=== PATIENT | female | born 1980 | race Hispanic/Latino ===

== ENCOUNTER 2017-08-18 03:01 | Inpatient (IN) | payer OTHER ==
[~2017-08-18] VITALS: Ht 165.1 cm; Wt 104.3 kg
--- OUTSIDE RECORDS SUMMARY | 2017-08-18 03:03 | XMS REPORT | Clinical Summary ---
Author Author [facility] Address Unknown Phone Unavailable Care Team Providers Care Certified Hyperbaric Technologist Name Role Phone Asked, Pcp PCP Unavailable Allergies Active Allergy Reactions Severity Noted Date Comments Penicillin Hives 06/17/2017 Current Medications Prescription Sig. Disp. Refills Start End Date Status Date norgestimate-ethinyl Take 1 tablet by mouth 28 tablet 11 08/05/19 Active estradiol (SPRINTEC, 28,) daily. 18 0.25-35 mg-mcg per tablet norgestimate-ethinyl Take 1 tablet by mouth 08/05/19 Discontin estradiol (SPRINTEC, 28,) daily. 18 ued 0.25-35 mg-mcg per tablet Active Problems Not on file Encounters Date Type Specialty Care Team Description 08/04/2017 Refill Obstetrics and Gynecology Dawn Francois MA 06/17/2017 Office Visit Obstetrics and Gynecology Lolita León MD Cervical smear, as part of routine gynecological examination (Primary Dx) after 08/17/2016 Family History Medical History Relation Name Comments Diabetes Maternal Grandfather Hypertension Maternal Grandfather Cancer Maternal Grandmother Hypertension Mother Relation Name Status Comments Maternal Grandfather Maternal Grandmother Mother Social History Tobacco Use Types Packs/Day Years Used Date Never Smoker Smokeless Tobacco: Never Used Alcohol Use Drinks/Week oz/Week Comments Yes social Sex Assigned at Date Recorded Not on file Last Filed Vital Signs Vital Sign Reading Time Taken Blood Pressure 176/110 06/17/2017 9:36 AM OCEAN FORWARDER Pulse 74 06/17/2017 9:36 AM OCEAN FORWARDER Temperature 36.8 C (98.3 F) 06/17/2017 9:36 AM OCEAN FORWARDER Respiratory Rate - - Oxygen Saturation - - Inhaled Oxygen - - Concentration Weight 104 kg (228 lb 9.6 oz) 06/17/2017 9:36 AM OCEAN FORWARDER Height - - Body Mass Index - - Plan of Treatment Health Maintenance Due Date Last Done Comments PAP SMEAR 2002 INFLUENZA VACCINE 12/01/2017 Results * Pap IG, Ct-Ng TV rfx HPV all (06/17/2017 10:15 AM) Component Value Ref Range Diagnosis CommentComment: NEGATIVE FOR INTRAEPITHELIAL LESION AND MALIGNANCY. Specimen adequacy Comment Comment: Satisfactory for evaluation. No endocervical component is identified. The absence of an endocervical component was confirmed by an additional screening evaluation. Clinician provided ICD10 CommentComment: Z01.419 Performed by: Comment Comment: Yumiko Valdez, Barrel Bander (ASCP) Reviewed at: [address] [address] [place] reviewed by: Comment Comment: Narda Mednoza, Supervisory Barrel Bander (ASCP) Reviewed at: [address] [address] Comment . Note: Comment Comment: The Pap smear is a screening test designed to aid in the detection of premalignant and malignant conditions of the uterine cervix. It is not a diagnostic procedure and should not be used as the sole means of detecting cervical cancer. Both false-positive and false-negative reports do occur. Test methodology Comment Comment: This liquid based ThinPrep(R) pap test was screened with the use of an image guided system. Reflex Comment Comment: The HPV DNA reflex criteria were not met with this specimen result therefore, no HPV testing was performed. Chlamydia, nucleic acid Negative Negative amp Gonococcus by nucleic Negative Negative acid amp Trichomonas vag by JOLENE Negative Negative Specimen Performing Laboratory [facility]erv[facility] Narrative Performed at: - [facility] [address] [place], [id number] Inspector And Clerk: Fely Osborne MD, Phone:[phone] Performed at:02 - [facility] [address] [place], [id number] Inspector And Clerk: Fely Osborne MD, Phone:[phone] Specimen Comment: Source.............Cervix Specimen Comment: No. of containers..01 ThinPrep Vial after 08/17/2016 Insurance Payer Benefit Subscriber ID Type Phone Address Plan / Group [facility] xxxxxxxxx HMO/PPO THCARE CHOICE/CHO ICE + Home: [address] [place] [id number]
[2017-08-18] MEDS ORDERED: SPRINTEC1 EACH PO (03:20)
[2017-08-18] MEDS ORDERED: XYZAL5 MG PO (03:20)
[2017-08-18] MEDS ORDERED: LISINOPRIL-HCT1 EACH PO (03:20)
[2017-08-18 03:36] LABS: BASOPHILS # (AUTO) 0.1 (0.0-0.1); BASOPHILS % 0.4 % (0.0-1.0); EOSINOPHILS % 0.2 % (0.0-6.0); HEMATOCRIT 41.8 % (34.2-44.1); HEMOGLOBIN 14.7 g/dL (12.0-16.0); LYMPHOCYTES # (AUTO) 2.5 (1.0-3.2); LYMPHOCYTES % 14.8 % (18.0-39.1); MEAN CORPUSCULAR HEMOGLOBIN 29.2 pg (28-32); MEAN CORPUSCULAR HGB CONC 35.2 g/dL (31-35); MEAN CORPUSCULAR VOLUME 83.1 fL (81-99); MONOCYTES # (AUTO) 0.3 (0.2-0.8); MONOCYTES % 1.9 % (4.4-11.3); NEUTROPHILS # (AUTO) 13.5 (2.1-6.9); NEUTROPHILS % 81.1 % (38.7-80.0); PLATELET COUNT 344 x10e3/uL (140-360); RED BLOOD COUNT 5.03 x10e6/uL (3.6-5.1)
[2017-08-18 03:42] LABS: CLARITY,URINE CLEAR (CLEAR); COLOR,URINE YELLOW (YELLOW); KETONES,URINE 2+ (NEGATIVE); LEUKOCYTE ESTERASE ,URINE NEGATIVE (NEGATIVE); NITRITE,URINE NEGATIVE (NEGATIVE); PROTEIN,URINE DIPSTICK 2+ (NEGATIVE); URINE UROBILINOGEN 0.2 mg/dL (0.2 - 1)
[2017-08-18 03:43] LABS: BILIRUBIN,URINE 2+ (NEGATIVE)
[2017-08-18 03:50] LABS: PREGNANCY TEST, URINE NEGATIVE (NEGATIVE)
[2017-08-18 03:51] LABS: BACTERIA,URINE MANY /HPF; EPITHELIAL CELLS,URINE MODERATE /LPF
[2017-08-18 03:52] LABS: ALANINE AMINOTRANSFERASE 25 IU/L (0-55); ALBUMIN 3.6 g/dL (3.5-5.0); ALBUMIN/GLOBULIN RATIO 0.8 (0.8-2.0); ALKALINE PHOSPHATASE 64 IU/L (40-150); AMYLASE 75 U/L (25-125); ANION GAP 15.1 mmol/L (8-16); BLOOD UREA NITROGEN 10 mg/dL (7-26); BUN/CREATININE RATIO 13 (6-25); CALCIUM 9.8 mg/dL (8.4-10.2); CARBON DIOXIDE 24 mmol/L (22-29); CHLORIDE 99 mmol/L (98-107); CREATININE, SERUM 0.77 mg/dL (0.57-1.11); EST GLOMERULAR FILTRATION RATE > 60 ML/MIN (60-); GLUCOSE 150 mg/dL (74-118); LIPASE 21 U/L (8-78); POTASSIUM 4.1 mmol/L (3.5-5.1); SODIUM 134 mmol/L (136-145)
[2017-08-18] MEDS ORDERED: ONDANSETRON HCL INJ 2 MG/ML VIAL IV STA ×2 (03:55→03:56)
[2017-08-18] MEDS ORDERED: DIATRIZOATE MEGL/DIATRIZOA SOD 30 ML BTL PO ONE (04:01)
[2017-08-18] MEDS ORDERED: IOPAMIDOL 370 MG/ML 200 ML INFUS..BTL INJ ONE (05:49)
[2017-08-18] MEDS ORDERED: SODIUM CHLORIDE 0.9% 50ML 50 ML ONE (05:49)
--- NOTE | 2017-08-18 06:10 | Diagnostic Imaging Report ---
EXAM: CT ABDOMEN/PELVIS W DATE: 08/18/2017 3:54 AM INDICATION: Abdominal pain, afebrile, WBC 16 reportedly. Patient is on lisinopril. COMPARISON: None TECHNIQUE: The abdomen and pelvis were scanned using a multidetector helical scanner. Coronal and sagittal reformations were obtained. Routine protocol performed. IV Contrast: 100 ml Isovue 370 FINDINGS: LOWER THORAX: No consolidations LIVER/BILIARY: Hepatic steatosis. No masses. No ductal dilatation. GALLBLADDER: Unremarkable SPLEEN: Unremarkable PANCREAS: Unremarkable ADRENALS: No nodules KIDNEYS: subcentimeter left inferior renal cyst. Nonobstructing 4 mm superior renal calculus. No hydronephrosis. GI TRACT: Segmental edematous thickening of jejunal small bowel loops. VESSELS: Unremarkable PERITONEUM/RETROPERITONEUM: Mild free fluid mostly in the pelvis. LYMPH NODES: No lymphadenopathy REPRODUCTIVE ORGANS/BLADDER: Unremarkable SOFT TISSUES: Unremarkable BONES: No suspicious bone lesions. IMPRESSION: Segmental jejunal thickening, which may be related to FIORELLA inhibitor induced angioedema or alternatively infectious enteritis in the proper clinical context. Signed by: Dr Madyson Grande MD on 08/18/2017 6:06 AM
[2017-08-18] MEDS ORDERED: LEVOFLOXACIN 500MG/D5W 100ML IV SCH (06:45)
--- OUTSIDE RECORDS SUMMARY | 2017-08-18 06:53 | XMS REPORT | Clinical Summary ---
Author Author [facility] Address Unknown Phone Unavailable Care Team Providers Care Band Sawing Machine Operator Name Role Phone Asked, Pcp PCP Unavailable [...] Taken Blood Pressure 176/110 06/17/2017 9:36 AM CORD CUTTER Pulse 74 06/17/2017 9:36 AM CORD CUTTER Temperature 36.8 C (98.3 F) 06/17/2017 9:36 AM CORD CUTTER Respiratory Rate - - Oxygen Saturation - - Inhaled Oxygen - - Concentration Weight 104 kg (228 lb 9.6 oz) 06/17/2017 9:36 AM CORD CUTTER Height - - Body Mass Index - [...] Z01.419 Performed by: Comment Comment: Yumiko Valdez, Grinder Mill Operator (ASCP) Reviewed at: [address] [address] [place] reviewed by: Comment Comment: Narda Mendoza, Supervisory Grinder Mill Operator (ASCP) Reviewed at: [address] [address] Comment . Note: Comment Comment: The Pap [...] Laboratory [facility] Narrative Performed at: - [facility] [address] [place], [id number] Office Inspector: Fely Osborne MD, Phone:[phone] Performed at:02 - [facility] [address] [place], [id number] Office Inspector: Fely Osborne MD, Phone:[phone] Specimen Comment: Source.............Cervix Specimen Comment: No. of containers..01 ThinPrep Vial after 08/17/2016 Insurance Payer Benefit Subscriber ID Type Phone Address Plan / Group [facility] xxxxxxxxx HMO/PPO THCARE CHOICE/CHO ICE + Home: [address] [place] [id number]
--- OUTSIDE RECORDS SUMMARY | 2017-08-18 06:53 | XMS REPORT ---
Author Author [facility] Address Unknown Phone Unavailable Care Team Providers Care Sales Account Associate Name Role Phone BARI DOBBS Unavailable Unavailable Problems This patient has no known problems. Allergies, Adverse Reactions, Alerts This patient has no known allergies or adverse reactions. Medications This patient has no known medications. Results Test Description Test Time Test Comments Text Results Atomic Results Result Comments CT ABDOMEN/PELVIS W [place] [id number] Patient Name: DONTA BURGESS MR #: [id number] : 1980 Age/Sex: 36/F Req #: [id number] Adm Physician: Ordered by: BARI DOBBS MD Report #: [id number] Location: ER Room/Bed: ___ Procedure: [id number] CT/CT ABDOMEN/PELVIS W Exam Date: 08/18/17 Exam Time: 0504 REPORT STATUS: Signed EXAM: CT ABDOMEN/PELVIS W DATE: 08/18/2017 3:54 AM INDICATION: Abdominal pain, afebrile, WBC 16 reportedly. Patient is on lisinopril. COMPARISON: None TECHNIQUE: The abdomen and pelvis were scanned using a multidetector helical scanner. Coronal and sagittal reformations were obtained. Routine protocol performed. IV Contrast: 100 ml Isovue 370 FINDINGS: LOWER THORAX: No consolidations LIVER/BILIARY: Hepatic steatosis. No masses. No ductal dilatation. GALLBLADDER: Unremarkable SPLEEN: Unremarkable PANCREAS: Unremarkable ADRENALS: No nodules KIDNEYS: subcentimeter left inferior renal cyst. Nonobstructing 4 mm superior renal calculus. No hydronephrosis. GI TRACT: Segmental edematous thickening of jejunal small bowel loops. VESSELS: Unremarkable PERITONEUM/RETROPERITONEUM: Mild free fluid mostly in the pelvis. LYMPH NODES: No lymphadenopathy REPRODUCTIVE ORGANS/ BLADDER: Unremarkable SOFT TISSUES: Unremarkable BONES: No suspicious bone lesions. IMPRESSION: Segmental jejunal thickening, which may be related to FIORELLA inhibitor induced angioedema or alternatively infectious enteritis in the proper clinical context. Signed by: Dr Faith Grande MD on 08/18/2017 6:06 AM Dictated By: FAITH GRANDE MD 5 Transcribed By: KENNY on 08/18 COPY TO: BARI DOBBS MD
[2017-08-18] MEDS: METRONIDAZOLE 500MG/NS 100ML 100 ML IV SCH ×4 (07:07→23:18)
[2017-08-18] MEDS: METHYLPREDNISOLONE SOD SUCC 40 MG/ML VIAL IV SCH ×4 (07:07→23:18)
[2017-08-18] MEDS: FAMOTIDINE 20 MG/2 ML VIAL IV SCH ×3 (07:07→17:00)
[2017-08-18] MEDS: SODIUM CHLORIDE 0.9% 1000ML 1,000 ML IV SCH ×3 (07:07→21:59)
[2017-08-18 07:55] LABS: CHOL/HDL RATIO 2.4 (3.0-3.6)
[2017-08-18] MEDS: LEVOFLOXACIN 500MG/D5W 100ML 100 ML IV SCH (08:20)
[2017-08-18] MEDS: ONDANSETRON HCL INJ 2 MG/ML VIAL IV PRN ×2 (08:33→18:38)
[2017-08-18] MEDS: MORPHINE SULFATE 2 MG/ML SYR IV PRN ×2 (08:33→18:00)
--- NOTE | 2017-08-18 08:36 | History and Physical ---
PRIMARY CARE PHYSICIAN: Dr. Daly CHIEF COMPLAINT: Abdominal pain, nausea and vomiting. HISTORY OF PRESENT ILLNESS: This is a 36-year-old woman with a history of IBS, now developing abdominal pain diffusely with associated nausea, vomiting, and diarrhea for the past 3 days, has been worsening, therefore she came to the hospital. Denies any fever. Denies any other symptoms. Imaging in the ER suggested enteric pathology. She is admitted for further evaluation and management. PAST MEDICAL HISTORY: Hypertension, IBS, psoriasis. PAST SURGICAL HISTORY: x2. ALLERGIES: PER ELECTRONIC MEDICAL RECORD. FAMILY/SOCIAL HISTORY: Patient is single. She has 2 children. No alcohol, illicits, or cigarettes. MEDICATIONS: Per electronic medical record. REVIEW OF SYSTEMS: Denies any dizziness, chest pain. PHYSICAL EXAMINATION: VITAL SIGNS: Have been reviewed. GENERAL APPEARANCE: Tired-appearing woman resting in bed. HEENT: Anicteric. Pupils respond to light. No oral lesions. CARDIOVASCULAR: Normal S1 and S2. LUNGS: Good breath sounds. ABDOMEN: Soft, nondistended. She has tenderness in the mid abdomen in a band-like pattern, significant tenderness. EXTREMITIES: Trace edema. SKIN: Dry. PSYCHIATRIC: Flat affect. NEUROLOGICAL: Alert and oriented x3. Moving all extremities. LABS: Reviewed. MEDICATIONS: Reviewed. ASSESSMENT AND PLAN: Qgjhcf-wdol-stvt-old woman. 1. Acute enteritis with jejunal thickening/jejunitis. Will use intravenous steroids and antibiotics and keep patient n.p.o. today. 2. Angioedema of the gut. Intravenous steroids, hold angiotensin-converting enzyme inhibitor, and n.p.o. status. 3. Hyperglycemia obesity. Will screen for diabetes. 4. Obesity. Screen for diabetes. 5. Urinary tract infection. Will treat with antibiotics and follow up cultures. 6. Prophylaxis. Will use intravenous Pepcid and sequential compression devices. 7. Disposition. Monitor closely. Follow up laboratories. Job#: [id number]
[2017-08-18] MEDS ORDERED: LORATADINE 10 MG TAB PO SCH (09:00)
[2017-08-18] MEDS ORDERED: NORGESTIMATE ETHINYL ESTRADIOL PO SCH (09:00)
[2017-08-18] MEDS: SPRINTEC PO SCH (09:00)
[2017-08-18] MEDS: LORATADINE 10 MG TAB PO SCH (09:00)
[2017-08-18 10:00] VITALS: BP 150/81
[2017-08-18 12:53] VITALS: BP 123/74
[2017-08-18 15:44] VITALS: BP 97/50
[2017-08-18 20:00] VITALS: BP 97/50
[2017-08-19] VITALS (7 sets, daily range): BP systolic 104–195; BP diastolic 53–110
[2017-08-19] MEDS: METHYLPREDNISOLONE SOD SUCC 40 MG/ML VIAL IV SCH ×3 (05:45→18:00)
[2017-08-19] MEDS: METRONIDAZOLE 500MG/NS 100ML 100 ML IV SCH ×3 (05:45→19:07)
[2017-08-19] MEDS: SODIUM CHLORIDE 0.9% 1000ML 1,000 ML IV SCH ×2 (05:45→14:38)
[2017-08-19 07:10] LABS: BASOPHILS % 0.1 % (0.0-1.0); HEMATOCRIT 33.3 % (34.2-44.1); HEMOGLOBIN 11.6 g/dL (12.0-16.0); LYMPHOCYTES # (AUTO) 1.4 (1.0-3.2); LYMPHOCYTES % 11.5 % (18.0-39.1); MEAN CORPUSCULAR HEMOGLOBIN 29.2 pg (28-32); MEAN CORPUSCULAR HGB CONC 34.8 g/dL (31-35); MEAN CORPUSCULAR VOLUME 83.9 fL (81-99); MONOCYTES # (AUTO) 0.3 (0.2-0.8); MONOCYTES % 2.7 % (4.4-11.3); NEUTROPHILS # (AUTO) 10.4 (2.1-6.9); PLATELET COUNT 259 x10e3/uL (140-360); RED BLOOD COUNT 3.97 x10e6/uL (3.6-5.1); RED CELL DISTRIBUTION WIDTH 12.8 % (11.7-14.4)
[2017-08-19 07:34] LABS: ALANINE AMINOTRANSFERASE 19 IU/L (0-55); ALBUMIN 3.1 g/dL (3.5-5.0); ALBUMIN/GLOBULIN RATIO 0.8 (0.8-2.0); ALKALINE PHOSPHATASE 49 IU/L (40-150); AMYLASE 57 U/L (25-125); BLOOD UREA NITROGEN 7 mg/dL (7-26); BUN/CREATININE RATIO 11 (6-25); CALCIUM 8.5 mg/dL (8.4-10.2); CARBON DIOXIDE 23 mmol/L (22-29); CHLORIDE 104 mmol/L (98-107); CREATININE, SERUM 0.64 mg/dL (0.57-1.11); EST GLOMERULAR FILTRATION RATE > 60 ML/MIN (60-); GLUCOSE 141 mg/dL (74-118); LIPASE 12 U/L (8-78); SODIUM 136 mmol/L (136-145)
[2017-08-19] MEDS: LEVOFLOXACIN 500MG/D5W 100ML 100 ML IV SCH (08:00)
[2017-08-19] MEDS: LORATADINE 10 MG TAB PO SCH (08:30)
[2017-08-19] MEDS: FAMOTIDINE 20 MG/2 ML VIAL IV SCH ×2 (08:30→17:00)
--- NOTE | 2017-08-19 08:58 | Progress Note ---
DATE: August 19, 2017 TIME: 8:31 a.m. OVERNIGHT: Feeling a little better. REVIEW OF SYSTEMS: Denies any dizziness. VITAL SIGNS: Reviewed. PHYSICAL EXAMINATION GENERAL: Tired-appearing woman resting in bed. HEENT: Anicteric. CARDIOVASCULAR: Normal S1 and S2. LUNGS: Moderate breath sounds. ABDOMEN: Soft, nondistended. Mild tenderness in the abdomen but less compared to yesterday. SKIN: Dry. PSYCHIATRIC: Normal affect. LABS: Reviewed. MEDICATIONS: Reviewed. ASSESSMENT: A 36-year-old woman. 1. Acute enteritis with jejunal thickening and jejunitis. 2. Angioedema of the gut secondary to lisinopril. 3. Hyperglycemia with hemoglobin A1c 5.7. 4. Obesity. 5. Urinary tract infection. PLAN 1. Continue IV antibiotics. 2. Continue IV steroids. 3. Start clear liquid diet. 4. Continue IV Flagyl. 5. Continue Pepcid. 6. Discharge planning. Continue current care. Patient is improving. Obtain labs this morning. Job#: [id number]
[2017-08-19] MEDS: MORPHINE SULFATE 2 MG/ML SYR IV PRN ×2 (09:00→22:03)
[2017-08-19] MEDS: SPRINTEC PO SCH (09:00)
[2017-08-19] MEDS: ONDANSETRON HCL INJ 2 MG/ML VIAL IV PRN (09:00)
[2017-08-19] MEDS ORDERED: ONDANSETRON HCL 4 MG ORAL DISINTEGRATING TAB PO PRN (12:45)
[2017-08-20] VITALS (8 sets, daily range): BP systolic 168–180; BP diastolic 82–97
[2017-08-20] MEDS: SODIUM CHLORIDE 0.9% 1000ML 1,000 ML IV SCH ×2 (00:12→05:14)
[2017-08-20] MEDS: METRONIDAZOLE 500MG/NS 100ML 100 ML IV SCH ×5 (00:12→23:53)
[2017-08-20] MEDS: METHYLPREDNISOLONE SOD SUCC 40 MG/ML VIAL IV SCH ×5 (00:12→23:53)
[2017-08-20 07:22] LABS: BASOPHILS % 0.2 % (0.0-1.0); HEMATOCRIT 33.6 % (34.2-44.1); HEMOGLOBIN 11.5 g/dL (12.0-16.0); LYMPHOCYTES # (AUTO) 1.3 (1.0-3.2); LYMPHOCYTES % 10.5 % (18.0-39.1); MEAN CORPUSCULAR HEMOGLOBIN 28.8 pg (28-32); MEAN CORPUSCULAR HGB CONC 34.2 g/dL (31-35); MONOCYTES # (AUTO) 0.3 (0.2-0.8); MONOCYTES % 2.6 % (4.4-11.3); NEUTROPHILS # (AUTO) 10.6 (2.1-6.9); NEUTROPHILS % 84.2 % (38.7-80.0); PLATELET COUNT 262 x10e3/uL (140-360)
[2017-08-20] MEDS ORDERED: PREDNISONE20 MG PO (07:29)
[2017-08-20] MEDS ORDERED: LEVAQUIN500 MG PO (07:29)
[2017-08-20] MEDS ORDERED: PEPCID20 MG PO (07:29)
[2017-08-20] MEDS ORDERED: FLAGYL500 MG PO (07:29)
[2017-08-20] MEDS ORDERED: HYDRALAZINE HCL25 MG PO (07:29)
[2017-08-20] MEDS ORDERED: HYDRALAZINE HCL 25 MG TAB PO SCH ×3 (07:30→22:00)
[2017-08-20] MEDS ORDERED: HYDRALAZINE HCL 10 MG TAB PO SCH ×3 (07:36→14:00)
[2017-08-20 07:39] LABS: BLOOD UREA NITROGEN 9 mg/dL (7-26); BUN/CREATININE RATIO 14 (6-25); CALCIUM 8.5 mg/dL (8.4-10.2); CARBON DIOXIDE 24 mmol/L (22-29); CHLORIDE 104 mmol/L (98-107); CREATININE, SERUM 0.65 mg/dL (0.57-1.11); EST GLOMERULAR FILTRATION RATE > 60 ML/MIN (60-); GLUCOSE 142 mg/dL (74-118); SODIUM 136 mmol/L (136-145)
[2017-08-20] MEDS: LEVOFLOXACIN 500MG/D5W 100ML 100 ML IV SCH (07:47)
[2017-08-20] MEDS: SPRINTEC PO SCH (09:00)
[2017-08-20 09:15] LABS: LYMPHOCYTES % (MANUAL) 9 % (19-48); METAMYELOCYTES % (MANUAL) 1 % (0-0); MONOCYTES % (MANUAL) 2 % (3.4-9.0); MYELOCYTES % (MANUAL) 1 % (0-0); NEUTROPHILS % (MANUAL) 87 % (40-74); RBC MORPHOLOGY COMMENT NORMAL
[2017-08-20 09:16] LABS: PLATELET ESTIMATE ADEQUATE; PLATELET MORPHOLOGY COMMENT NORMAL
[2017-08-20] MEDS: FAMOTIDINE 20 MG/2 ML VIAL IV SCH ×2 (09:33→17:00)
[2017-08-20] MEDS: LORATADINE 10 MG TAB PO SCH (09:33)
[2017-08-20] MEDS: MORPHINE SULFATE 2 MG/ML SYR IV PRN ×2 (10:20→17:35)
[2017-08-20] MEDS: NIFEDIPINE CR 30 MG TAB PO SCH ×2 (11:56→21:11)
[2017-08-20] MEDS ORDERED: NIFEDIPINE CR 30 MG TAB PO SCH (21:00)
[2017-08-20] MEDS: ACETAMINOPHEN 325 MG TAB PO PRN (22:39)
[2017-08-21] VITALS: BP 121/66
[2017-08-21 04:00] VITALS: BP 116/68
[2017-08-21 04:55] VITALS: BP 121/66
[2017-08-21] MEDS ORDERED: HYDRALAZINE HCL 25 MG TAB PO SCH (06:00)
[2017-08-21] MEDS: ACETAMINOPHEN 325 MG TAB PO PRN (06:10)
[2017-08-21] MEDS: METRONIDAZOLE 500MG/NS 100ML 100 ML IV SCH (06:10)
[2017-08-21 07:15] VITALS: BP 110/59
[2017-08-21] MEDS: LEVOFLOXACIN 500MG/D5W 100ML 100 ML IV SCH (07:44)
[2017-08-21 08:01] VITALS: BP 110/59
[2017-08-21] MEDS ORDERED: NIFEDIPINE ER30 M1 PO (08:03)
[2017-08-21] MEDS ORDERED: HYDRALAZINE HCL25 MG PO (08:03)
[2017-08-21] MEDS: SPRINTEC PO SCH (09:00)
[2017-08-21] MEDS ORDERED: METHYLPREDNISOLONE SOD SUCC 40 MG/ML VIAL IV SCH (09:00)
[2017-08-21] MEDS: NIFEDIPINE CR 30 MG TAB PO SCH (09:00)
[2017-08-21] MEDS: FAMOTIDINE 20 MG/2 ML VIAL IV SCH (09:05)
[2017-08-21] MEDS: LORATADINE 10 MG TAB PO SCH (09:06)
--- NOTE | 2017-08-23 08:02 | Progress Note ---
DATE: August 20, 2017 TIME: 7:40 a.m. OVERNIGHT: No events. REVIEW OF SYSTEMS: Denies any dizziness. VITAL SIGNS: Reviewed. PHYSICAL EXAMINATION GENERAL: Tired-appearing woman resting in bed. HEENT: Anicteric. CARDIOVASCULAR: Normal S1 and S2. LUNGS: Moderate breath sounds. ABDOMEN: Soft, nondistended. Mild tenderness in the abdomen. EXTREMITIES: No edema. SKIN: Dry. PSYCHIATRIC: Normal affect. LABS: Reviewed. MEDICATIONS: Reviewed. ASSESSMENT: A 36-year-old woman. 1. Acute enteritis with jejunal thickening and jejunitis. 2. Angioedema of the gut secondary to lisinopril. 3. Hyperglycemia with glycosylated hemoglobin 5.7. 4. Obesity. 5. Urinary tract infection. PLAN 1. Continue IV antibiotics. 2. Continue IV steroids. 3. Continue clear liquid diet. 4. Continue IV Flagyl. 5. Continue Pepcid. 6. Discharge planning. Job#: [id number]
--- NOTE | 2017-08-23 08:07 | Discharge Summary ---
PRINCIPAL DIAGNOSES 1. Acute enteritis with jejunal thickening and jejunitis. 2. Angioedema of the gut secondary to lisinopril. 3. Hyperglycemia with glycosylated hemoglobin 5.7. 4. Obesity. 5. Urinary tract infection. SECONDARY DIAGNOSIS: Obesity. CHIEF COMPLAINT: Abdominal pain. HISTORY OF PRESENT ILLNESS: This is a 36-year-old with abdominal pain. Please refer to the H and P for further details. HOSPITAL COURSE: The patient was found to have acute enteritis with jejunal thickening and jejunitis. She had angioedema of the gut, which appeared to be secondary to lisinopril. Lisinopril was discontinued. She was treated with IV antibiotics and IV steroids and put on a liquid diet. She also received IV Flagyl and Pepcid. The patient did well, and the leukocytosis improved. The patient is subsequently discharged home. DISCHARGE MEDICATIONS: Per electronic medical record. FOLLOWUP: With primary care doctor in 1 week. CONDITION ON DISCHARGE: Stable and improving. DISCHARGE LOCATION: Home. ALLAN RAYA MD Job#: [id number]
== END 2017-08-21 10:50 | disposition home or self-care (01) | DRG 394 ==
LOC: ER 03:01 → ERHOLD 06:50 → MED/SURG3 08:15
PROVIDERS: ADMIT Internal Medicine; ATTEND Internal Medicine
DX: K52.1 Toxic gastroenteritis and colitis (principal); N39.0 Urinary tract infection, site not specified; E66.9 Obesity, unspecified; R73.9 Hyperglycemia, unspecified; T78.3XXA Angioneurotic edema, initial encounter; T46.4X5A Adverse effect of angiotensin-converting-enzyme inhibitors, initial encounter
CPT/HCPCS: 36415; 74177; 80048; 80053; 80061; 81001; 81025; 82150; 83036; 83690; 85025; 87086; 96361; 96367; 99284; J1956; J2270; J2405; J2920; J7030; Q9967